=== PATIENT | female | born 1955 | race Caucasian/White ===

== ENCOUNTER → 2018-05-13 | Outpatient (CLI) | payer OTHER ==
[~2018-05-13] MED LIST: AMBIEN 10MG10 MG PO; AMBIEN10 MG PO; AMITRIPTYLINE H50 M1 PO; AMOXICILLIN 8751 TAB PO; ANTIVERT 12.512.5 MG PO; ANTIVERT 25MG25 MG PO; ATIVAN 1MG T1 MG/TAB PO; BACTRIM DS 8001 TAB PO; BENTYL 10MG10 MG/CAP PO; BETAMETHASONE DIPROPIONATE TP; BRINTELLIX5; CALCIPOTRIENE TP; CLOBETASOL; CYMBALTA 30MG30 MG PO; CYMBALTA30 MG PO; DARVOCET N 101 UDTAB PO; DICYCLOMINE10 MG PO; ELAVIL25 MG PO; FLONASE NASAL S16 GM NS; GABAPENTIN300 MG PO; IMITREX50 MG PO; KEPPRA 500MG500 MG PO; KLONOPIN 0.5MG0.5 MG PO; LEVOXYL0.125 MG PO; LORAZEPAM1 MG PO; MECLIZINE12.5 MG PO; MOTRIN 200200 MG/TAB PO; NEURONTIN300 MG/CAP PO; PATANOL OPHTHALM5 ML OU; PERCOCET 325 MG1 TA2 PO; PERCOCET 325 MG1 TAB PO; PRAVACHOL 20MG20 MG PO; PREVACID 15MG15 M1 PO; PROAIR HFA0.09 MG/AC IH; PROBIOTIC FORMU1 CAP PO; SINGULAIR 110 MG/TAB PO; SINGULAIR10 MG PO; SUDAFED30 MG PO; SYNTHROID0.125 MG/T PO; TYLENOL 325MG325 MG PO; TYLENOL 500MG500 MG PO; TYLENOL EXTRA500 M1 PO; ULTRAM 50MG TAB50 MG PO; VITAMIN D 400400 IU PO; ZYRTEC 10MG10 MG PO; ZYRTEC10 MG PO; [UNRECOGNIZED DRUG - CODE] PO; [UNRECOGNIZED DRUG - CODE] PO; [UNRECOGNIZED DRUG - OTHER]
== END ==
LOC: MC.RAD 14:20
DX: Z12.31 Encounter for screening mammogram for malignant neoplasm of breast (principal)

== ENCOUNTER 2021-02-11 15:17 | Emergency (ER) | payer MEDICARE, OTHER ==
[~2021-02-11] VITALS: Ht 167.6 cm; Wt 65.5 kg
[2021-02-11 16:50] VITALS: TEMP 98.3
[2021-02-11] MEDS ORDERED: AMOXICILLIN 8751 TAB PO (17:55)
[2021-02-11 18:34] VITALS: BP 158/91; PULSE 68
== END 2021-02-11 18:34 | disposition home or self-care (01) ==
LOC: COL.ER 15:17
DX: S51.851A Open bite of right forearm, initial encounter (principal); Z23 Encounter for immunization; Z86.69 Personal history of other diseases of the nervous system and sense organs; Y92.009 Unspecified place in unspecified non-institutional (private) residence as the place of occurrence of the external cause; W54.0XXA Bitten by dog, initial encounter